=== PATIENT | male | born 1990 | race Caucasian/White ===

== ENCOUNTER 2020-01-02 05:24 | Emergency (ER) | payer SELFPAY ==
[~2020-01-02] VITALS: Ht 177.8 cm; Wt 130.3 kg
[2020-01-02 05:37] VITALS: BP 163/111
[2020-01-02] MEDS ORDERED: PROPARACAINE OPHTH 0.5%, 15ML ONE (05:42)
[2020-01-02] MEDS ORDERED: FLUORESCEIN OPHTHALMIC 1 MG STRIP ONE (05:44)
== END 2020-01-02 07:10 | disposition home or self-care (01) ==
LOC: ED 05:51
DX: S05.01XA Injury of conjunctiva and corneal abrasion without foreign body, right eye, initial encounter (principal); X58.XXXA Exposure to other specified factors, initial encounter; Y93.89 Activity, other specified; Y92.69 Other specified industrial and construction area as the place of occurrence of the external cause; Y99.0 Civilian activity done for income or pay
CPT/HCPCS: 99283

== ENCOUNTER 2020-12-09 08:34 | Emergency (ER) | payer SELFPAY ==
[~2020-12-09] VITALS: Ht 177.8 cm; Wt 129.9 kg
--- NOTE | 2020-12-09 08:53 | NUR ---
PT AMBULATORY TO ROOM 33 W/ C/O LLQ ABD PAIN NOW STARTING TO RADIATE LLQ ABD PAIN. PT STATES IT STARTED ABRUPTLY THIS AM AT 0630. PT DENIES HEMATURIA AND BLOOD IN STOOL. PT STATES HX ABD SURGERY FOR UNDESCENDED TESTICLE. PT RESTING ON GURNEY. MOANING IN PAIN. LOW SEGURA AT BEDSIDE FOR EVAL.
[2020-12-09] MEDS ORDERED: LIDOCAINE-MPF 1%, 5ML ONE (08:58)
[2020-12-09] MEDS ORDERED: ONDANSETRON 2MG/ML, 2ML ONE (08:59)
[2020-12-09] MEDS ORDERED: MORPHINE SULFATE 4 MG/ML, 1ML ONE (08:59)
[2020-12-09] MEDS ORDERED: LIDOCAINE-MPF 1%, 5ML INFIL ONE (09:00)
[2020-12-09] MEDS ORDERED: ONDANSETRON 2MG/ML, 2ML IVPush ONE (09:00)
[2020-12-09] MEDS ORDERED: SODIUM CHLORIDE 0.9% 1,000ML IVBOLUS ONE (09:00)
[2020-12-09] MEDS ORDERED: MORPHINE SULFATE 4 MG/ML, 1ML IVPush PRN (09:00)
[2020-12-09 09:23] LABS: MICROSCOPIC AUTO
--- NOTE | 2020-12-09 09:26 | NUR ---
PT TO AND FROM CT IN STABLE CONDITION. STATES PAIN IMPROVED FROM 8/10 TO 4/10. PT NOTED TO BE RESTING COMFORTABLY. WARM BLANKET PROVIDED. VSS.
[2020-12-09 09:47] LABS: BASOPHILS % (AUTO) 1 % (0-1); EOSINOPHILS % (AUTO) 4 % (1-7); LYMPHOCYTES % (AUTO) 36 % (22-44); MEAN CORPUSCULAR HEMOGLOBIN 30.5 pg (27.5-34.5); MEAN CORPUSCULAR HGB CONC 34.9 g/dL (33.2-36.2); MEAN PLATELET VOLUME 7.9 fL (7.4-10.4); MONOCYTES % (AUTO) 8 % (2-9); NEUTROPHILS % (AUTO) 51 % (42-75); PLATELET COUNT 313 x10^3/uL (130-400); RED BLOOD COUNT 4.82 x10^6/uL (4.38-5.82); RED CELL DISTRIBUTION WIDTH 13.1 % (9.4-14.8)
[2020-12-09 09:57] LABS: ALANINE AMINOTRANSFERASE 104 U/L (12-78); ALBUMIN 3.8 g/dL (3.4-5.0); ANION GAP 9 mmol/L (5-15); CALCIUM 8.3 mg/dL (8.5-10.1); CHLORIDE 111 mmol/L (98-107); CREATININE 0.97 mg/dL (0.7-1.3)
[2020-12-09 09:59] LABS: ALKALINE PHOSPHATASE 41 U/L (45-117); BILIRUBIN,TOTAL 0.5 mg/dL (0.2-1.0); TOTAL PROTEIN 6.8 g/dL (6.4-8.2)
--- NOTE | 2020-12-09 10:12 | NUR ---
PT RESTING ON GURNEY. NADN. CARL.
[2020-12-09 11:14] VITALS: BP 133/79
[2020-12-09] MEDS ORDERED: NEOSPORIN OINT. PKT 1 PACKET ONE (11:21)
--- NOTE | 2020-12-09 11:26 | NUR ---
IV remoed with tip intact. Patient given discharge instructions and prescription and they have confirmed that they understand the instructions. Patient ambulatory with steady gait. NAD, all questions answered appropriately, denies additional needs at this time. No personal belongings left in room after discharge.
== END 2020-12-09 11:27 | disposition home or self-care (01) ==
LOC: ED 09:36
DX: L60.0 Ingrowing nail (principal); N20.1 Calculus of ureter
CPT/HCPCS: 11730; 36415; 74176; 80053; 81001; 83690; 85025; 87086; 96361; 96374; 96375; 99284; J2270; J2405; J7030

== ENCOUNTER 2020-12-11 03:00 | Emergency (ER) | payer SELFPAY ==
[~2020-12-11] VITALS: Ht 177.8 cm; Wt 130.0 kg
[2020-12-11] MEDS ORDERED: ONDANSETRON 2MG/ML, 2ML ONE (03:51)
[2020-12-11] MEDS ORDERED: KETOROLAC 30 MG/1 ML ONE (03:51)
[2020-12-11 03:55] LABS: BASOPHILS % (AUTO) 0 % (0-1); EOSINOPHILS % (AUTO) 3 % (1-7); LYMPHOCYTES % (AUTO) 26 % (22-44); MEAN CORPUSCULAR HEMOGLOBIN 30.6 pg (27.5-34.5); MEAN CORPUSCULAR HGB CONC 34.9 g/dL (33.2-36.2); MEAN PLATELET VOLUME 7.8 fL (7.4-10.4); MONOCYTES % (AUTO) 9 % (2-9); NEUTROPHILS % (AUTO) 61 % (42-75); PLATELET COUNT 300 x10^3/uL (130-400); RED BLOOD COUNT 4.89 x10^6/uL (4.38-5.82); RED CELL DISTRIBUTION WIDTH 13.4 % (9.4-14.8)
[2020-12-11] MEDS ORDERED: ONDANSETRON 2MG/ML, 2ML IVPush ONE (04:00)
[2020-12-11] MEDS ORDERED: KETOROLAC 30 MG/1 ML IVPush ONE (04:00)
[2020-12-11 04:02] LABS: MICROSCOPIC NOT IND
[2020-12-11 04:03] LABS: ALBUMIN 3.8 g/dL (3.4-5.0); ANION GAP 6 mmol/L (5-15); CALCIUM 8.9 mg/dL (8.5-10.1); CHLORIDE 110 mmol/L (98-107)
[2020-12-11 04:07] LABS: ALANINE AMINOTRANSFERASE 79 U/L (12-78); ALKALINE PHOSPHATASE 44 U/L (45-117); BILIRUBIN,TOTAL 0.4 mg/dL (0.2-1.0); CREATININE 1.51 mg/dL (0.7-1.3); TOTAL PROTEIN 7.4 g/dL (6.4-8.2)
[2020-12-11] MEDS ORDERED: ONDANSETRON ODT 4 MG ONE (04:24)
[2020-12-11 05:45] VITALS: BP 148/86
== END 2020-12-11 06:14 | disposition home or self-care (01) ==
LOC: ED 06:00
DX: N20.2 Calculus of kidney with calculus of ureter (principal); R10.32 Left lower quadrant pain
CPT/HCPCS: 36415; 76700; 80053; 81003; 83690; 85025; 96374; 96375; 99284; J1885; J2405